=== PATIENT | female | born 1955 | race Caucasian/White ===

== ENCOUNTER → 2017-03-21 | Outpatient (CLI) | payer BC ==
[2017-03-21 14:26] LABS: THYROID STIMULATING HORMONE 2.76 uIU/ml (0.34-5.60)
[2017-03-21 16:19] LABS: FREE T3 2.8 pg/mL (2.5-3.9)
[2017-03-21 16:21] LABS: FREE THYROXIN (T4) 0.64 ng/dL (0.58-1.64)
== END | disposition home or self-care (01) ==
LOC: SLAB 13:14
PROVIDERS: Internal Medicine
DX: E05.90 Thyrotoxicosis, unspecified without thyrotoxic crisis or storm (principal)
CPT/HCPCS: 36415; 84439; 84443; 84481

== ENCOUNTER → 2017-05-16 | Outpatient (CLI) | payer BC | END | disposition home or self-care (01) | LOC: SLAB 13:48 | DX: E05.90 Thyrotoxicosis, unspecified without thyrotoxic crisis or storm (principal); R94.6 Abnormal results of thyroid function studies | CPT/HCPCS: 36415; 84443; 86376 ==